=== PATIENT | female | born 1995 | race African-American/Black ===

== ENCOUNTER 2019-09-24 17:39 | Emergency (ER) | payer OTHER ==
[~2019-09-24] VITALS: Ht 170.2 cm; Wt 81.7 kg
[2019-09-24] MEDS ORDERED: ALL DAY ALLERGY10 M3 PO (17:57)
[2019-09-24 18:25] LABS: ABSOLUTE BASOPHILS 0.1 thou/uL (0.0-0.2); ABSOLUTE EOSINOPHILS 0.1 thou/uL (0.0-0.7); ABSOLUTE LYMPHOCYTES 1.7 thou/uL (0.8-5.3); ABSOLUTE MONOCYTES 0.4 thou/uL (0.0-1.2); BASOPHILS 0.8 %; EOSINOPHILS 1.2 %; HEMATOCRIT 39.3 % (37.0-47.0); HEMOGLOBIN 13.5 gm/dL (12.0-15.0); LYMPHOCYTES 23.2 %; MCH 31.6 pg (26.0-34.0); MCHC 34.4 g/dL (28.0-37.0); MCV 91.7 fL (80.0-100.0); MONOCYTES 5.2 %; MPV 8.1 fl. (7.2-11.1); NUCLEATED RBCS 0 /100WBC; PLATELET COUNT* 262 thou/uL (150-400); POLYS 69.6 %; RBC 4.28 mil/uL (4.20-5.00); RDW-CV 12.8 % (10.5-14.5); WBC 7.2 thou/uL (4.0-11.0)
[2019-09-24 18:31] LABS: URINE BILIRUBIN NEGATIVE (Negative); URINE BLOOD NEGATIVE (Negative); URINE CLARITY CLEAR; URINE COLOR YELLOW; URINE GLUCOSE-RANDOM NEGATIVE (Negative); URINE KETONES NEGATIVE (Negative); URINE LEUKOCYTES-REFLEX NEGATIVE (Negative); URINE NITRITE-REFLEX NEGATIVE (Negative); URINE PROTEIN NEGATIVE (Negative); URINE UROBILINOGEN 0.2 E.U./dl (0.2-1.0)
[2019-09-24 18:32] LABS: CALCIUM 9.5 mg/dL (8.5-10.1); CREATININE 0.9 mg/dL (0.6-1.3)
[2019-09-24 18:36] LABS: ALBUMIN 4.8 g/dL (3.4-5.0); TOTAL BILIRUBIN 0.6 mg/dL (<0.1-1.0); TOTAL PROTEIN 9.2 g/dL (6.4-8.2)
[2019-09-24 20:39] VITALS: BP 118/69
== END 2019-09-24 20:38 | disposition home or self-care (01) ==
LOC: M.ERS 17:39
PROVIDERS: Physician Assistant
DX: N83.202 Unspecified ovarian cyst, left side (principal)

== ENCOUNTER 2019-10-08 22:05 | Emergency (ER) | payer OTHER ==
[~2019-10-08] VITALS: Ht 172.7 cm; Wt 81.7 kg
[~2019-10-08 22:05] MED LIST: ALL DAY ALLERGY10 M3 PO
[2019-10-08] MEDS ORDERED: NASONEX17 GM NASAL (23:33)
[2019-10-08 23:53] VITALS: BP 139/79
== END 2019-10-08 23:54 | disposition home or self-care (01) ==
LOC: M.ERS 22:05
DX: H92.03 Otalgia, bilateral (principal)

== ENCOUNTER 2019-10-11 21:22 | Emergency (ER) | payer OTHER ==
[~2019-10-11] VITALS: Ht 172.7 cm; Wt 81.7 kg
[~2019-10-11 21:22] MED LIST changes: +NASONEX17 GM NASAL
[2019-10-12 00:17] VITALS: BP 132/70
== END 2019-10-12 00:17 | disposition home or self-care (01) ==
LOC: M.ERS 21:22
DX: R05 Cough (principal); Z20.828 Contact with and (suspected) exposure to other viral communicable diseases

== ENCOUNTER 2020-04-12 18:32 | Emergency (ER) | payer OTHER ==
[~2020-04-12] VITALS: Ht 172.7 cm; Wt 90.7 kg
[2020-04-12] MEDS ORDERED: MEDROLDOSEPACK PO (19:51)
[2020-04-12] MEDS ORDERED: NABUMETONE 750750 M1 PO (19:51)
[2020-04-12] MEDS ORDERED: NORCO5 PO (19:51)
[2020-04-12 20:05] VITALS: BP 157/91
== END 2020-04-12 20:05 | disposition home or self-care (01) ==
LOC: M.ERS 18:32
DX: M72.2 Plantar fascial fibromatosis (principal)